=== PATIENT | male | born 1970 | race Caucasian/White ===

== ENCOUNTER 2022-03-12 22:55 | Emergency (ER) | payer OTHER ==
[~2022-03-12] VITALS: Ht 175.3 cm; Wt 101.2 kg
[~2022-03-12 22:55] MED LIST: LISINOPRIL20 MG PO
[2022-03-13] MEDS ORDERED: TAMSULOSIN HCL0.4 MG PO (00:08)
[2022-03-13] MEDS ORDERED: LISINOPRIL-HCT1 EACH PO (00:08)
[2022-03-13] MEDS ORDERED: PROSCAR5 MG PO (02:34)
== END 2022-03-13 02:30 | disposition home or self-care (01) ==
LOC: ED 22:55
DX: N40.1 Benign prostatic hyperplasia with lower urinary tract symptoms (principal); R35.1 Nocturia; I10 Essential (primary) hypertension; Z88.2 Allergy status to sulfonamides; Z88.1 Allergy status to other antibiotic agents; Z79.899 Other long term (current) drug therapy
CPT/HCPCS: 36415; 51798; 74176; 80053; 81001; 83036; 85025; 99284-25

== ENCOUNTER 2022-05-05 05:55 | Day surgery (SDC) | payer OTHER ==
[~2022-05-05] VITALS: Ht 175.3 cm; Wt 102.0 kg
[~2022-05-05 05:55] MED LIST changes: +LISINOPRIL-HCT1 EACH PO; +PROSCAR5 MG PO; +TAMSULOSIN HCL0.4 MG PO
--- NOTE | 2022-05-05 07:53 | NUR ---
VISITED WITH PT PRIOR TO PROCEDURE. PT WAS READY FOR PROCEDURE AND WANTED TO BE TAKEN BACK QUICKLY. PRAYED WITH PT.
--- NOTE | 2022-05-05 08:28 | NUR ---
05/05/22 0828 Zuleyma Farrell 0752 PT ARRIVED IN PACU SLEEPY WITH NO C/O'S. ABD SOFT. 0800 SITTING UP IN BED TALKING TO DR. Jie ALVARENGA INSTRUCTIONS GIVEN. ALL QUESTIONS ANSWERED. 0815 LEFT VIA W/C.
--- NOTE | 2022-05-05 08:49 | OR ---
[facility] [address] [place], [place] [address] Signed DATE OF OPERATION: 05/05/2022 SURGEON: Lesvia Barrera MD PREOPERATIVE DIAGNOSIS: Screening. PREOPERATIVE DIAGNOSIS: 4 mm polyp at 10 cm. PROCEDURE: Colonoscopy with hot biopsy. ESTIMATED BLOOD LOSS: None. INDICATIONS: Bala is a 52-year-old gentleman who I have actually known for quite some time. He was asked to see me for his initial screening colonoscopy. He has no lower GI complaints. There is no family history of colon cancer or polyps. In the office, I had given him a pamphlet on colonoscopy. We reviewed the nature of the test along with its risks including, but not limited to gas bloating, crampy abdominal pain, bleeding, perforation requiring surgery, and missed diagnosis. We also reviewed the need for monitored anesthesia care given his daily alcohol intake. He had expressed understanding and wished to proceed. PROCEDURE NOTE: Bala was taken into our endoscopy suite and placed in the left lateral decubitus position. He was given monitored anesthesia care with propofol per our nurse tab machine operator. A digital rectal exam was performed and this was unremarkable. No external hemorrhoids. Good sphincter tone. After this, the adult colonoscope had been introduced and advanced all around into the cecum under direct visualization of the camera without difficulty. His prep was quite excellent. We could easily see the appendiceal orifice and the ileocecal valve. The scope was then slowly withdrawn. He had no pathology throughout the entire colon. He had one small 4 mm polyp in his rectum at 10 cm. This was easily removed with hot biopsy forceps. Upon retroflexion of the scope, there was no additional pathology noted above the anal canal. After this, the gas was suctioned out and the colonoscope removed. Bala tolerated the procedure quite well. Electronically Signed By: LESVIA BARRERA MD 05/05/22 0849 PATIENT NAME: BALA DELEON OPERATIVE REPORT DATE OF : 70 REPORT #: [id number] PHYSICIAN: LESVIA BARRERA MD PCP: THEO HOPE MD REPORT IS CONFIDENTIAL AND NOT TO BE RELEASED WITHOUT AUTHORIZATION [address] [address] Signed RECOMMENDATIONS: I will see Bala jennings in my office in 7 to 14 days to review his results. Lesvia Barrera MD ALB/MODL /[id number] cc: MD Dr. Theo Isidro Copies: LESVIA BARRERA MD ~ Electronically Signed By: LESVIA BARRERA MD 05/05/22 0849 PATIENT NAME: BALA DELEON OPERATIVE REPORT DATE OF : 70 REPORT #: [id number] PHYSICIAN: LESVIA BARRERA MD PCP: THEO HOPE MD REPORT IS CONFIDENTIAL AND NOT TO BE RELEASED WITHOUT AUTHORIZATION
--- NOTE | 2022-05-06 12:25 | PATH ---
[facility] [address] [place], [place] [address] Signed SPECIMEN(S): A RECTAL POLYP AT 10 CM SPECIMEN SOURCE: A. RECTAL POLYP AT 10 CM CLINICAL HISTORY: Preop: Screening colonoscopy. Postop: Rectal polyp. FINAL PATHOLOGIC DIAGNOSIS: Rectal polyp at 10 cm: - Tubular adenoma (one fragment). JVR:kajal:[id number] MICROSCOPIC EXAMINATION: Histologic sections of all submitted blocks are examined by light microscopy. These findings, together with the gross examination, support the pathologic diagnosis. GROSS DESCRIPTION: The specimen, labeled "MB, rectal polyp at 10 cm," is received in formalin and consists of one rascon soft tissue fragment that measures 0.1 cm in greatest dimension. The specimen is entirely submitted in cassette (A1). JS (under the direct supervision of a pathologist) The Gross Description was prepared using a voice recognition system. The report was reviewed for accuracy; however, sound-alike word errors, addition and/or deletions may occur. If there is any question about this report, please contact Client Services. PERFORMING LABORATORY: The technical component was performed by [facility], [address] [place] [id number] (CLIA# [id number]). Professional interpretation was performed by [facility] [address] [address] (CLIA#: [id number]). Diagnostician: Ata Dove MD Pathologist Electronically Signed 05/06/2022 PATIENT NAME: MORENO DELEON PATHOLOGY DATE OF : 70 REPORT #: [id number] PHYSICIAN: [facility] PCP: KELVIN HOPE MD REPORT IS CONFIDENTIAL AND NOT TO BE RELEASED WITHOUT AUTHORIZATION [address] [address] Signed Copies: ~ PATIENT NAME: MORENO DELEON PATHOLOGY DATE OF : 70 REPORT #: [id number] PHYSICIAN: [facility] PCP: KELVIN HOPE MD REPORT IS CONFIDENTIAL AND NOT TO BE RELEASED WITHOUT AUTHORIZATION
== END 2022-05-05 08:15 | disposition home or self-care (01) ==
LOC: OPS 05:55 → DS 05:55 → OPS 07:30 → DS 09:45 → OPS 09:45
PROVIDERS: ATTEND Colon & Rectal Surgery
PROC: 0DBP8ZZ Excision of Rectum, Via Natural or Artificial Opening Endoscopic (ICD-10-PCS; principal; 2022-05-05 07:30)
DX: Z12.11 Encounter for screening for malignant neoplasm of colon (principal); I10 Essential (primary) hypertension; F10.99 Alcohol use, unspecified with unspecified alcohol-induced disorder; D12.8 Benign neoplasm of rectum; Z88.2 Allergy status to sulfonamides; Z88.1 Allergy status to other antibiotic agents
CPT/HCPCS: J2704; J3010; J7121